=== PATIENT | female | born 1995 | race Caucasian/White ===

== ENCOUNTER 2016-09-23 13:45 | Emergency (ER) | payer OTHER ==
[2016-09-23 14:09] VITALS: BP 131/87; PULSE 83; TEMP 98.3; BMI 23.3
[2016-09-23] MEDS ORDERED: KETOROLAC TROMETHAMINE 60 MG/2 ML VIAL IM ONE (14:48)
[2016-09-23 14:58] LABS: URINE APPEARANCE CLEAR; URINE BILIRUBIN NEGATIVE (NEGATIVE); URINE BLOOD NEGATIVE (NEGATIVE); URINE COLOR STRAW; URINE GLUCOSE (UA) NEGATIVE (NEGATIVE); URINE KETONE NEGATIVE (NEGATIVE); URINE NITRITE NEGATIVE (NEGATIVE); URINE PROTEIN NEGATIVE (NEGATIVE); URINE UROBILINOGEN NEGATIVE E.U./dl (0.2-1.0)
[2016-09-23 15:04] LABS: URINE LEUK ESTERASE TRACE (NEGATIVE)
[2016-09-23 15:05] LABS: URINE MUCUS RARE; URINE RBC 1 /hpf (0-3); URINE WBC 4 /hpf (3-5)
[2016-09-23] MEDS ORDERED: KETOROLAC TROMETHAMINE 60 MG/2 ML VIAL ONE (15:08)
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
== END 2016-09-23 16:41 | disposition home or self-care (01) ==
LOC: JERFT 13:45 → JER 13:45 → JERFT 16:41
PROC: 3E0233Z Introduction of Anti-inflammatory into Muscle, Percutaneous Approach (ICD-10-PCS; principal; 2016-09-23)
DX: S16.1XXA Strain of muscle, fascia and tendon at neck level, initial encounter (principal); S50.12XA Contusion of left forearm, initial encounter; V49.9XXA Car occupant (driver) (passenger) injured in unspecified traffic accident, initial encounter; Y93.89 Activity, other specified; Y92.410 Unspecified street and highway as the place of occurrence of the external cause
CPT/HCPCS: 72125-TC; 81003; 81015; 84703; 99281-25

== ENCOUNTER 2021-09-05 01:15 | Inpatient (IN) | payer OTHER ==
[2021-09-05] MEDS ORDERED: ELECTROLYTE-148 SOLN 500 ML IV ONE (01:57)
[2021-09-05] MEDS ORDERED: ELECTROLYTE-148 SOLN 1,000 ML IV SCH ×2 (02:00→08:15)
[2021-09-05 03:54] LABS: PH,URINE 6.5 (5.0-8.0); URINE APPEARANCE CLEAR; URINE BILIRUBIN NEGATIVE (NEGATIVE); URINE COLOR YELLOW; URINE GLUCOSE (UA) NEGATIVE (NEGATIVE); URINE KETONE NEGATIVE (NEGATIVE); URINE LEUK ESTERASE NEGATIVE (NEGATIVE); URINE NITRITE NEGATIVE (NEGATIVE); URINE PROTEIN NEGATIVE (NEGATIVE); URINE UROBILINOGEN 0.2 mg/dL (0.2-1.0)
[2021-09-05] MEDS ORDERED: PROMETHAZINE HCL 25 MG/1 ML VIAL IVPB ONE (08:12)
[2021-09-05] MEDS ORDERED: AMPICILLIN - 2 GM in SODIUM CHLORIDE 100 ML IVPB ONE (08:15)
[2021-09-05 08:17] VITALS: BMI 35.6
[2021-09-05 08:30] LABS: BASO % 0.2 % (0-2.0); EOS % 0.3 % (0-4.5); HEMATOCRIT 36.6 % (32.4-45.2); HEMOGLOBIN 11.9 GM/dL (10.7-15.3); LYMPH % 11.5 % (8-40); MCH 28.7 pg (25.7-33.7); MCHC 32.6 g/dl (32.0-36.0); MEAN PLT VOLUME 8.9 fl (7.5-11.1); MONO % 5.3 % (3.8-10.2); NEUT % 82.7 % (42.8-82.8); PLATELET COUNT 229 10^3/uL (134-434); RBC 4.16 M/mm3 (3.60-5.2); RDW 15.1 % (11.6-15.6); WHITE BLOOD COUNT 12.9 K/mm3 (4.0-10.0)
[2021-09-05] MEDS ORDERED: AMPICILLIN SODIUM 2 GM VIAL ONE (08:32)
[2021-09-05 08:37] LABS: INR 0.97 (0.83-1.09); PROTHROMBIN TIME (PATIENT) 11.2 SEC (9.7-13.0)
[2021-09-05 08:40] LABS: ACTIVATED PTT 27.3 SECONDS (25.2-36.5)
[2021-09-05 08:47] LABS: BLOOD UREA NITROGEN 5.6 mg/dL (7-18)
[2021-09-05 08:50] LABS: CREATININE 0.4 mg/dL (0.55-1.3)
[2021-09-05] MEDS ORDERED: FENTANYL/BUPIVACAINE/NS/PF - PCEA - 50 ML DISP.SYRIN EP ONE (09:10)
[2021-09-05] MEDS ORDERED: BUPIVACAINE HCL/PF 0.25% (2.5MG/ML) 10 ML VIAL ONE (09:38)
[2021-09-05] MEDS ORDERED: NALOXONE HCL 0.4 MG/ML VIAL IVPUSH PRN (10:11)
[2021-09-05] MEDS ORDERED: FENTANYL/BUPIVACAINE/NS/PF - PCEA - 50 ML DISP.SYRIN EP SCH ×2 (10:15→10:46)
[2021-09-05 11:12] LABS: HIV INTERPRETATION NEGATIVE (NEGATIVE)
[2021-09-05] MEDS: AMPICILLIN - 1 GM in SODIUM CHLORIDE 100 ML IVPB SCH ×2 (12:10→16:34)
[2021-09-05] MEDS ORDERED: AMPICILLIN SODIUM 1 GM VIAL ONE (12:11)
[2021-09-05] MEDS ORDERED: OXYTOCIN 20 UNITS in 0.9% NS 20 UNIT/1,000 ML INFUS.BAG IV ONE ×2 (12:54→17:56)
[2021-09-05] MEDS ORDERED: METHYLERGONOVINE MALEATE 0.2 MG/1 ML AMP IM PRN (14:55)
[2021-09-05] MEDS ORDERED: oxyCODONE HCL 5 MG TABLET PO PRN (14:55)
[2021-09-05] MEDS ORDERED: BISACODYL 10 MG SUPP.RECT RC PRN (14:55)
[2021-09-05] MEDS ORDERED: BENZOCAINE 28 GM HEMORRHOIDAL OINTMENT TP PRN (14:55)
[2021-09-05] MEDS ORDERED: BENZOCAINE 20% 57 GM BOTTLE TP PRN (14:55)
[2021-09-05] MEDS ORDERED: ACETAMINOPHEN 325 MG TABLET (FP) PO PRN (14:55)
[2021-09-05] MEDS ORDERED: WITCH HAZEL 50% (TUCKS) 40 PAD/JAR PAD TP PRN (14:55)
[2021-09-05] MEDS ORDERED: OXYTOCIN 20 UNITS in 0.9% NS 20 UNIT/1,000 ML INFUS.BAG IV SCH (15:00)
[2021-09-05 17:17] LABS: CORD BASE EXCESS -7.1 mmol/L (0-2); CORD HCO3 21.9 mmHg (20-29); CORD PCO2 57.4 mmHg (30-78); CORD pH 7.199 (7.14-7.44)
[2021-09-05] MEDS: FERROUS SO4 325 MG TABLET (FP) PO SCH (17:27)
[2021-09-05] MEDS ORDERED: IBUPROFEN 600 MG TABLET (FP) PO ONE (20:39)
[2021-09-05] MEDS: IBUPROFEN 600 MG TABLET (FP) PO PRN (20:40)
[2021-09-06] MEDS: IBUPROFEN 600 MG TABLET (FP) PO PRN ×2 (01:03→15:57)
[2021-09-06] MEDS: ACETAMINOPHEN/CAFFEINE/BUTALBITAL 1 TAB PO PRN ×4 (09:17→21:50)
[2021-09-06] MEDS: PRENATAL VITAMINS W/ FOLIC ACID TABLET (FP) PO SCH (09:17)
[2021-09-06] MEDS: FERROUS SO4 325 MG TABLET (FP) PO SCH ×3 (09:17→16:35)
[2021-09-06 09:23] LABS: BASO % 0.1 % (0-2.0); EOS % 0.4 % (0-4.5); HEMATOCRIT 29.8 % (32.4-45.2); LYMPH % 9.3 % (8-40); MCH 29.4 pg (25.7-33.7); MCHC 33.6 g/dl (32.0-36.0); MEAN CELL VOLUME 87.5 fl (80-96); MEAN PLT VOLUME 8.4 fl (7.5-11.1); NEUT % 85.2 % (42.8-82.8); PLATELET COUNT 193 10^3/uL (134-434); RBC 3.41 M/mm3 (3.60-5.2); RDW 15.2 % (11.6-15.6); WHITE BLOOD COUNT 16.9 K/mm3 (4.0-10.0)
[2021-09-06] MEDS ORDERED: SENNOSIDES/DOCUSATE COMBO (SENNA PLUS) TABLET (UD) PO PRN (22:00)
[2021-09-07] MEDS: ACETAMINOPHEN/CAFFEINE/BUTALBITAL 1 TAB PO PRN ×2 (02:10→07:41)
[2021-09-07] MEDS: FERROUS SO4 325 MG TABLET (FP) PO SCH ×2 (07:41→11:52)
[2021-09-07] MEDS: PRENATAL VITAMINS W/ FOLIC ACID TABLET (FP) PO SCH (09:45)
[2021-09-07] MEDS: IBUPROFEN 600 MG TABLET (FP) PO PRN (09:48)
[2021-09-07 14:44] VITALS: BP 111/73; PULSE 87; TEMP 98.1
== END 2021-09-07 15:22 | disposition home or self-care (01) | DRG 560 ==
LOC: JDEL 01:15 → UNDOADMIN 01:47 → JLDR 01:47 → J3W 20:46
PROVIDERS: ADMIT Obstetrics & Gynecology; ATTEND Obstetrics & Gynecology
PROC: 10E0XZZ Delivery of Products of Conception, External Approach (ICD-10-PCS; principal; 2021-09-05)
PROC: 3E0R3GC Introduction of Other Therapeutic Substance into Spinal Canal, Percutaneous Approach (ICD-10-PCS; 2021-09-07)
DX: O36.8330 Maternal care for abnormalities of the fetal heart rate or rhythm, third trimester, not applicable or unspecified (principal); O89.4 Spinal and epidural anesthesia-induced headache during the puerperium; Z3A.38 38 weeks gestation of pregnancy; Z37.0 Single live birth
CPT/HCPCS: 36415; 36600; 59409; 80048; 81003; 82803; 85025; 85610; 85730; 86780; 86850; 86900; 86901; 87389; C9803; U0003; U0005